=== PATIENT | female | born 1965 | race Caucasian/White ===

== ENCOUNTER 2018-11-04 05:20 | Inpatient (IN) | payer OTHER ==
[2018-11-04] MEDS ORDERED: ONDANSETRON HCL/PF 4 MG/ 2ML VIAL ONE (08:48)
[2018-11-04] MEDS ORDERED: BACITRACIN 50,000 UNIT VIAL IR ONE (08:48)
[2018-11-04] MEDS ORDERED: LEVALBUTEROL NEB 1.25 MG/3 ML VIAL.NEB NEB ONE (08:48)
[2018-11-04] MEDS ORDERED: SEVOFLURANE 250 ML LIQUID IH ONE (08:48)
[2018-11-04] MEDS ORDERED: DEXAMETHASONE SODIUM PHOSPHATE 10 MG/ML VIAL ONE (08:48)
[2018-11-04] MEDS ORDERED: HYDROmorphone HCL/PF 1 MG/ML VIAL ONE ×3 (08:48→10:42)
[2018-11-04] MEDS ORDERED: FAMOTIDINE 20 MG/2 ML VIAL IV ONE (08:48)
[2018-11-04] MEDS ORDERED: GELATIN SPONGE,ABSORB/PORCINE (SIZE 100) 1 EACH SPONGE TP ONE (08:48)
[2018-11-04] MEDS ORDERED: SUGAMMADEX SODIUM 200 MG/2 ML VIAL IV ONE (08:48)
[2018-11-04] MEDS ORDERED: LACTATED RINGERS 1,000 ML IV.SOLN IV ONE ×2 (08:48)
[2018-11-04] MEDS ORDERED: THROMBIN (BOVINE) 20,000 UNIT VIAL TP ONE (08:48)
[2018-11-04] MEDS ORDERED: fentaNYL CITRATE/PF 100 MCG/2 ML INJ. ONE ×3 (08:48→10:24)
[2018-11-04] MEDS ORDERED: PROPOFOL 200 MG/20 ML VIAL IV ONE (08:48)
[2018-11-04] MEDS ORDERED: ROCURONIUM BROMIDE 10 MG/ML 5ML VIAL ONE (08:48)
[2018-11-04] MEDS ORDERED: FENTANYL CITRATE/PF 250 MCG/5 ML INJ. ONE (08:48)
[2018-11-04] MEDS ORDERED: MIDAZOLAM HCL 2 MG/2 ML VIAL ONE (08:48)
[2018-11-04] MEDS ORDERED: ceFAZolin SODIUM 1 GM VIAL ONE (08:48)
[2018-11-04] MEDS ORDERED: LIDOCAINE HCL 2% PF 100MG/5ML VIAL IJ ONE (08:48)
[2018-11-04] MEDS ORDERED: ACETAMINOPHEN 500 MG TABLET PO PRN (11:12)
[2018-11-04] MEDS ORDERED: HYDROmorphone HCL 2 MG TABLET PO PRN (11:12)
[2018-11-04] MEDS ORDERED: diphenhydrAMINE HCL 50 MG/ML VIAL IVP PRN (11:12)
[2018-11-04] MEDS ORDERED: LEVALBUTEROL NEB 1.25 MG/3 ML VIAL.NEB NEB PRN (11:12)
[2018-11-04] MEDS ORDERED: ACETAMINOPHEN PO PRN (11:12)
[2018-11-04] MEDS ORDERED: oxyCODONE HCL 5 MG TABLET PO PRN (11:12)
[2018-11-04] MEDS ORDERED: DIAZEPAM 5 MG TABLET PO PRN (11:12)
[2018-11-04] MEDS ORDERED: PROMETHAZINE HCL 25 MG in 0.9 % SODIUM CHLORIDE 50 ML IV PRN (11:12)
[2018-11-04] MEDS ORDERED: diphenhydrAMINE HCL 25 MG TABLET PO PRN (11:12)
[2018-11-04] MEDS ORDERED: ONDANSETRON HCL/PF 4 MG/ 2ML VIAL IVP PRN (11:12)
[2018-11-04] MEDS ORDERED: OXYCODONE HCL PO PRN (11:12)
[2018-11-04 11:39] VITALS: BMI 28.9
--- NOTE | 2018-11-04 11:43 | History and Physical Report ---
History of Present Illnes - History of Present Illness Reason for Visit: S/P Lumbar Spine Total Disc Replacement L5-S1 Bilateral History of Present Illness: Patient is a 53-year-old white female that has an extensive history of back pain that has been unrelieved with multiple treatments. She currently is on narcotic pain medication and muscle relaxers. Her pain is increased with ambulation, sitting, standing, or trying to reposition in bed. She uses heating pads at home along with her pain medications. She uses a cane when she walks or a motorized scooter. She is mostly in her bed. Patient and surgeon decided to move forward with surgical procedure. Patient behavior is unusual- she was initially sleeping when leaving PACU (received sufficient amount of pain medication) and when she woke up she started screaming-crying (no tears)- and very uncooperative with staff. Explained that we were trying to help her- she laid supine in bed- looking to the left with her eyes closed yelling- (no guarding, grimacing, or moving to find position of comfort)- she stops yelling to answer questions, and finally allowed staff to get vitals when stated the importance for receiving pain medications (explained we wanted to make sure blood pressure/or heart rate was of no concern). We will try to find a point where patient is satisfied with level of discomfort without affecting resp. status or vital signs. 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: Migraine Gastrointestinal: GERD Hepatobiliary: Other (fatty liver) Psych: Anxiety, Bipolar, Depression, Other (PTSD) Musculoskeletal: Chronic low back pain, Osteoarthritis - Past Surgical History Past Surgical History: Other (discogram L2-L3, L3-4, L4-5, laminectomy L4-5 (2011)), Tubal Ligation, Tonsillectomy - Past Family History Mother Family History: Hypertension Father Family History: Other (Pancreatitis) - Past Social History Smoke: <1 pack per day Occupation: Disabled Alcohol: None Drugs: None Lives: With Family - Health Maintenance Health Maintenance: Influenza Vaccine Influenza Vaccine: Current for this Influenza Season Pneumonia Vaccine: No Resuscitation Status: Resusciation Status Resuscitation Status Full Code - Unable to Obtain History Unable to Obtain: No Review of Systems - Review of Systems Constitutional: negative: Fever, Chills Eyes: negative: pain ENT: negative: Ear Pain, Nose Pain, Throat Pain Respiratory: negative: Shortness of Breath, Wheezing Cardiovascular: negative: Chest Pain, Light Headedness Gastrointestinal: Abdominal Pain (incision). negative: Nausea, Vomiting Genitourinary: negative: Dysuria Musculoskeletal: Back Pain Skin: negative: Rash Neurological: negative: Weakness - Medications/Allergies Allergies/Adverse Reactions: Allergies Allergy/AdvReac Type Severity Reaction Status Date / Time erythromycin base Allergy Verified 11/04/18 11:09 quetiapine [From Seroquel] Allergy Verified 11/04/18 11:09 varenicline [From Chantix] Allergy Verified 11/04/18 11:09 Home Medications: Home Medications Aspirin [Aspir-Low] 81 mg PO DAILY 11/04/18 Atorvastatin Calcium 10 mg PO HS 11/04/18 Cyclobenzaprine HCl 10 mg PO TID PRN 11/04/18 Glucosamine HCl/Chondroitin Rosales [Endur-Flex Sr Tablet] 1 each PO DAILY 11/04/18 Melatonin 10 mg PO HS 11/04/18 Multivitamin [Multiple Vitamins] 1 each PO DAILY 11/04/18 Naproxen 500 mg PO BID 11/04/18 Center-3 Fatty Acids/Fish Oil [Fish Oil 1,000 mg Capsule] 1 cap PO DAILY 11/04/18 Omeprazole 20 mg PO DAILY 11/04/18 Oxybutynin Chloride [Ditropan] 5 mg PO TID 11/04/18 Oxycodone HCl [Roxicodone] 1 tab PO Q6 PRN 11/04/18 Sumatriptan Succinate 50 mg PO PRN PRN 11/04/18 Current Inpatient Medications: Current Inpatient Medications Acetaminophen (Tylenol Extra Strength) 500 mg PO Q4 PRN PRN Reason: for mild pain 1-4/fever Atorvastatin Calcium (Lipitor) 10 mg PO HS [facility] Diazepam (Valium) 5 mg PO Q8H PRN PRN Reason: Anxiety/muscle spasm Diphenhydramine HCl (Benadryl) 25 mg PO Q4 PRN PRN Reason: Itching or Sleeping Stop: 11/05/18 11:11 Diphenhydramine HCl (Benadryl) 25 mg IVP Q4 PRN PRN Reason: Itching or Sleeping Famotidine (Pepcid) 20 mg IVP BID [facility] Stop: 11/08/18 20:59 Heparin Sodium (Porcine) (Heparin) 5,000 unit SQ Q12 [facility] Hydromorphone HCl (Dilaudid) 4 mg PO Q4H PRN PRN Reason: FOR SEVERE PAIN 8-10 Stop: 11/05/18 11:11 Potassium Chloride/Dextrose/Sod Cl (D5w-1/2ns Kcl20) 1,000 mls @ 75 mls/hr IV Q12H [facility] Promethazine HCl 25 mg/ Sodium (Chloride) 51 mls @ 200 mls/hr IV Q6 PRN PRN Reason: Nausea / Vomiting Stop: 11/08/18 11:11 Ketorolac Tromethamine (Toradol) 15 mg IV Q6H PRN PRN Reason: For Mild Pain 1-4 Stop: 11/08/18 11:11 Levalbuterol HCl (Xopenex Neb) 1.25 mg NEB Q4H PRN PRN Reason: SOA, DYSPNEA, WHEEZING Miscellaneous (Melatonin [Melatonin]) 10 mg PO HS [facility] Morphine Sulfate () 4 mg IVP Q2 PRN PRN Reason: SEVERE PAIN 8-10 Stop: 11/05/18 11:11 Nicotine (Habitrol 14mg) 1 patch TD DAILY [facility] Ondansetron HCl (Zofran) 4 mg IVP Q6H PRN PRN Reason: Nausea / Vomiting Stop: 11/08/18 11:11 Oxybutynin Chloride (Ditropan) 5 mg PO TID [facility] Oxycodone HCl (Percolone) 10 mg PO Q4 PRN PRN Reason: Severe Pain (Score 5-7) Oxycodone/Acetaminophen (Percocet 7.5-325) 1 each PO Q4 PRN PRN Reason: FOR PAIN 1-4 Oxycodone/Acetaminophen (Percocet 7.5-325) 2 each PO Q4 PRN PRN Reason: FOR PAIN 5-7 Exam - Exam Vital Signs: Vital Signs (72 hours) 11/04/18 11/04/18 11:12 11:25 Temperature 97.3 F L Pulse Rate [ 102 H Pulse ox] Respiratory 24 Rate Blood Pressure 140/85 [Right Arm] O2 Sat by Pulse 94 94 Oximetry General: Alert, Oriented to Person, Oriented to Place, Moderate distress (Pt lying still- wont open eyes- screaming in pain- no tears) HEENT: PERRLA, Mouth Mucous membr. moist/[place], Nose Mucous membr. moist/[place], Other (left cheek- ingrown hair) Neck: Normal Range of Motion Carotids: No bruit- Patient yelling Lungs: Clear to auscultation, Normal air movement, Speaks full Sentences Cardiovascular: Regular rate, Normal S1, Normal S2 Abdomen: Soft, Decreased Bowel Sounds Integumentary: [place], Warm, Dry, Other (dressing to abdomen) Extremities: Normal pulses Neurological: Normal speech, Strength Equal Bilat, Sensation intact Psych/Mental Status: Other (behavior unusual- no guarding, grimacing, or trying to find position of comfort- no tears but crying and yelling) Assessment/Plan - Assessment/Plan (1) Status post lumbar surgery Status: Acute Current Visit: Yes Plan: Will give pain medication as directed, will monitor dressing site, will administer IVF to prevent dehydration d/t NPO status before surgery and until she can tolerate PO. Will give antiemetics as needed for nausea & vomiting, will give Pepcid IVP BID for GERD and d/t stress from surgery, will give heparin to prevent DVT along with SCDs while in bed. Patient will use incentive spirometry frequently to prevent resp. illness. Nicotine patch ordered due to smoking. (2) Anxiety and depression Status: Acute Current Visit: Yes Plan: Patient does not appear to be on medication- but will have staff monitor and offer items for distraction (3) GERD (gastroesophageal reflux disease) Status: Acute Current Visit: Yes Qualifiers: Esophagitis presence: esophagitis presence not specified Qualified Code(s): K21.9 - Gastro-esophageal reflux disease without esophagitis Plan: Will give Pepcid 20 mg IV BID (4) Chronic back pain Status: Acute Current Visit: Yes Qualifiers: Back pain location: low back pain Back pain laterality: bilateral Sciatica presence: with sciatica Sciatica laterality: sciatica laterality unspecified Qualified Code(s): M54.40 - Lumbago with sciatica, unspecified side; G89.29 - Other chronic pain Plan: Patient is s/p lumbar surgery VTE Assessment - RISK FACTOR SCORE VTE RISK FACTOR SCORES: AGE 40-60 YEARS, SMOKER, MAJOR SURGERY/ANESTHESIA TIME > 1 HOUR - RISK VTE HIGH RISK: SCORE OF 3-4 (RISK PROXIMAL DVT 4-8%) PROPHYLAXIS NEEDED (Heparin q12 hrs, SCDs while in bed)
[2018-11-04] MEDS ORDERED: KETOROLAC TROMETHAMINE 15 MG/ML VIAL ONE (12:05)
[2018-11-04] MEDS: POTASSIUM CHLOR 20 MEQ D51/2NS 1,000 ML IV SCH (12:11)
[2018-11-04] MEDS: NICOTINE 14mg PATCH.TD24 TD SCH (12:11)
[2018-11-04] MEDS: OXYBUTYNIN CHLORIDE 5 MG TABLET PO SCH ×2 (12:12→17:01)
[2018-11-04] MEDS ORDERED: KETOROLAC TROMETHAMINE 15 MG/ML VIAL IV PRN (12:15)
[2018-11-04] MEDS: MORPHINE SULFATE 4 MG/ML VIAL IVP PRN ×2 (13:12→17:02)
[2018-11-04] MEDS ORDERED: 0.9 % SODIUM CHLORIDE(MINIBAG+ 50 ML IV ONE (19:40)
[2018-11-04] MEDS: ACETAMINOPHEN PO PRN (20:13)
[2018-11-04] MEDS: OXYCODONE HCL PO PRN (20:13)
[2018-11-04] MEDS: FAMOTIDINE 20 MG/2 ML VIAL IVP SCH (20:56)
[2018-11-04] MEDS: MELATONIN 3 MG TABLET PO SCH (21:01)
[2018-11-04] MEDS ORDERED: ATORVASTATIN CALCIUM 20 MG TABLET PO ONE (21:06)
[2018-11-04] MEDS: HEPARIN SODIUM 5000 UNIT/1 ML SQ SCH (21:09)
[2018-11-04] MEDS: ATORVASTATIN CALCIUM 10 MG TABLET PO SCH (21:09)
[2018-11-05] MEDS: POTASSIUM CHLOR 20 MEQ D51/2NS 1,000 ML IV SCH ×2 (00:51→14:37)
[2018-11-05 06:47] LABS: BASOPHILS % 0.5 (0.0-1.5); EOSINOPHILS % 0.9 % (0.0-6.8); MONOCYTES % 8.7 % (0.0-11.0); NEUTROPHILS # 5.1 # k/uL (1.4-7.7); eGFR (Non-African) > 60
--- NOTE | 2018-11-05 06:54 | Inpatient Progress Note ---
Subjective - Required Recertification Statement I anticipate X number of days because-include discharge plan: 1 - Review of Systems Events since last encounter: Upon entry to room patient is lying supine in bed- she is alert and oriented- appears to be comfortable- no guarding or grimacing- neurovasculars are intact. She states that she has ambulated in the [place] a couple of times- she states that she has been using the incentive spirometer- and she is wearing the SCDs. Today, we will continue IVF until she is able to tolerate a regular diet- she will be transitioned from IV to PO pain medications, we will continue with Pepcid IV BID for GI upset s/p surgery, will continue to have patient work with therapy- dressing/incision site will be monitored, and heparin will be continued to prevent DVT General: Denies: Chills, Fatigue HEENT: Denies: Head Aches, Eye Pain, Sore Throat Pulmonary: Denies: Dyspnea, Cough Cardiovascular: Denies: Chest Pain, Light Headedness Gastrointestinal: Abdominal Pain (discomfort to incision site). Denies: Nausea, Vomiting Genitourinary: Denies: Dysuria Musculoskeletal: Back Pain (chronic). Denies: Leg Pain, Foot Pain Neurological: Denies: Weakness, Incoordination Objective - Exam Vitals and I&O: Vital Signs Temp 97.9 F 11/05/18 06:00 Pulse 83 11/05/18 06:00 Resp 16 11/05/18 06:00 BP 104/50 11/05/18 06:00 Pulse Ox 98 11/05/18 06:00 Intake & Output 11/04/18 11/04/18 11/05/18 11:59 23:59 11:59 Intake Total 0 490 300 Output Total 0 400 900 Balance 0 90 -600 Weight 88.904 kg Intake: Oral 0 490 300 Output: Urine 0 400 900 Other: Voiding Method Toilet Toilet # Voids 1 # Bowel Movements 0 General: Alert, Oriented to Person, Oriented to Place, Oriented to Time, Cooperative, No acute distress HEENT: PERRLA, Mouth Mucous membr. moist/[place], Nose Mucous membr. moist/[place] Neck: Supple, +2 carotid pulse wo bruit Lungs: Clear to auscultation, Normal air movement, Speaks full Sentences Cardiovascular: Regular rate, Normal S1, Normal S2 Abdomen: Normal bowel sounds, Soft, No tenderness Extremities: No edema, Normal pulses, No tenderness/swelling Skin: Normal, [place], Warm, Dry, Other (Dressing to abdomen dry/intact) Neurological: Normal gait, Normal speech, Strength Equal Bilat, Sensation intact Psych/Mental Status: Mental status NL, Appropriate Affect - Results Results: Laboratory Results WBC 8.40 K/ul (4.00-12.00) 11/05/18 06:05 RBC 4.05 M/ul (3.90-5.20) 11/05/18 06:05 Hgb 12.2 g/dL (12.0-16.0) 11/05/18 06:05 Hct 36.9 % (34.5-46.5) 11/05/18 06:05 MCV 91.0 fl (80.0-100.0) 11/05/18 06:05 MCH 30.0 pg (28.0-34.0) 11/05/18 06:05 MCHC 33.0 g/dL (30.0-36.0) 11/05/18 06:05 RDW 14.1 % (11.3-14.3) 11/05/18 06:05 Plt Count 230 K/mm3 (130-400) 11/05/18 06:05 Neut % (Auto) 59.8 % (39.0-79.0) 11/05/18 06:05 Lymph % (Auto) 30.1 % (16.0-50.0) 11/05/18 06:05 [place] % (Auto) 8.7 % (0.0-11.0) 11/05/18 06:05 Eos % (Auto) 0.9 % (0.0-6.8) 11/05/18 06:05 Baso % (Auto) 0.5 (0.0-1.5) 11/05/18 06:05 Neut # (Auto) 5.1 # k/uL (1.4-7.7) 11/05/18 06:05 Lymph # (Auto) 2.5 # k/uL (0.6-4.0) 11/05/18 06:05 [place] # (Auto) 0.7 # k/uL (0.0-0.9) 11/05/18 06:05 Eos # (Auto) 0.1 # k/uL (0.0-0.6) 11/05/18 06:05 Baso # (Auto) 0.0 # k/uL (0.0-0.5) 11/05/18 06:05 Sodium 134 mmol/L (136-145) L 11/05/18 06:05 Potassium 4.4 mmol/L (3.5-5.1) 11/05/18 06:05 Chloride 102 mmol/L (98-107) 11/05/18 06:05 Carbon Dioxide 27 mmol/L (22-30) 11/05/18 06:05 BUN 16 mg/dL (7-17) 11/05/18 06:05 Creatinine 0.83 mg/dL (0.52-1.04) 11/05/18 06:05 Estimated Creat Clear 126 11/05/18 06:05 Est GFR ( Amer) > 60 (60-) 11/05/18 06:05 Est GFR (Non-Af Amer) > 60 (60-) 11/05/18 06:05 Glucose 105 mg/dL (74-106) 11/05/18 06:05 Calcium 9.2 mg/dL (8.4-10.2) 11/05/18 06:05 Assessment/Plan - Assessment/Plan (1) Status post lumbar surgery Status: Acute Current Visit: Yes Assessment: LCTA, Dressing site is dry and intact, no pain to extremities x 4- neurovasculars are intact Plan: Will continue with pain control as directed- will transition from IV to Oral, will monitor dressing site, will administer IVF to prevent dehydration d/t NPO status before surgery and until she can tolerate PO. Will give antiemetics as needed for nausea & vomiting, will give Pepcid IVP BID for GERD and d/t stress from surgery, will give heparin to prevent DVT along with SCDs while in bed. Patient will use incentive spirometry frequently to prevent resp. illness. (2) Anxiety and depression Status: Acute Current Visit: Yes Assessment: Stable Plan: Will continue to monitor, offer activities for distraction (3) GERD (gastroesophageal reflux disease) Status: Acute Current Visit: Yes Qualifiers: Esophagitis presence: esophagitis presence not specified Qualified Code(s): K21.9 - Gastro-esophageal reflux disease without esophagitis Assessment: Tolerating PO liquids Plan: Will continue with Pepcid IV BID (4) Chronic back pain Status: Acute Current Visit: Yes Qualifiers: Back pain location: low back pain Back pain laterality: bilateral Sciatica presence: with sciatica Sciatica laterality: sciatica laterality unspecified Qualified Code(s): M54.40 - Lumbago with sciatica, unspecified side; G89.29 - Other chronic pain Assessment: S/P back surgery Plan: Will monitor pain
[2018-11-05] MEDS: OXYCODONE HCL PO PRN ×3 (08:51→20:15)
[2018-11-05] MEDS: ACETAMINOPHEN PO PRN ×3 (08:51→20:15)
[2018-11-05] MEDS: NICOTINE 14mg PATCH.TD24 TD SCH (09:11)
[2018-11-05] MEDS: OXYBUTYNIN CHLORIDE 5 MG TABLET PO SCH ×3 (09:11→17:50)
[2018-11-05] MEDS: HEPARIN SODIUM 5000 UNIT/1 ML SQ SCH ×2 (09:12→20:06)
[2018-11-05] MEDS: FAMOTIDINE 20 MG/2 ML VIAL IVP SCH ×2 (09:39→20:06)
--- NOTE | 2018-11-05 15:24 | Operative Note ---
PREOPERATIVE DIAGNOSIS: 1. Herniated nucleus pulposus, L5-S1. 2. Severe degenerative disc disease, L5-S1. POSTOPERATIVE DIAGNOSIS: 1. Herniated nucleus pulposus, L5-S1. 2. Severe degenerative disc disease, L5-S1. PROCEDURES PERFORMED: 1. Left side retroperitoneal exploration for exposure of the anterior intervertebral disc space at L5-S1. 2. Isolation, ligation, and division of the anterior sacral artery and vein for exposure of the anterior disc space at L5-S1. 3. Venolysis of the left and right common iliac veins for exposure of the anterior lumbar spine at L5-S1. 4. Arteriolysis of the left and right common iliac arteries for exposure of the anterior lumbar spine at L5-S1. 5. Radical anterior discectomy for herniated nucleus pulposus, L5-S1, with release of the posterior longitudinal ligament from the L5 vertebral body. 6. Placement of lumbar total disc replacement arthroplasty, large implant, 8.5 mm insert at L5-S1. 7. Intraoperative fluoroscopy and interpretation for needle placement. SURGEON: Fred Dunham Jr. MMarley. CRYPTOLOGIC LINGUIST: None. ANESTHESIA: General. COMPLICATIONS: None. CONDITION FOLLOWING THE PROCEDURE: Good. OPERATIVE FINDINGS: Ms. Castro has exquisite pain unresponsive to prolonged conservative management at L5-S1. The patient was counseled regarding options and in lieu of fusion would like to preserve motion with a total disc replacement arthroplasty. This was carried out today with the appearance of ideal placement by intraoperative C-arm fluoroscopic views. DESCRIPTION OF PROCEDURE: The patient was taken to the operating room and anesthesia induced. In the supine position, the abdomen was thoroughly scrubbed and sterilely prepped and draped. A skin manju was made representing the extended center line of the L5-S1 disc space as determined radiographically. In this location, a 3.5-cm vertical incision was made in the skin and electrocautery was used to make subcutaneous dissection down to the anterior rectus sheath. Just to the left of midline, the anterior rectus sheath was divided vertically and the left rectus muscle was from the midline and elevated in its entirety anteriorly. The retroperitoneal space was then entered and the inferolateral margin of the posterior rectus sheath and the peritoneal contents were swept superiorly and to the right side, including the left ureter. The L5-S1 palpable step-off was noted, followed by arteriolysis and venolysis of the left and right common iliac artery and vein, respectively, with placement of Omni Blade Self-retaining retractors to hold them widely , exposing the entirety of the L5-S1 disc space anteriorly. The middle sacral artery and vein were then isolated, clipped with titanium clips and divided to allow access. Electrocautery was then used to perform an annulotomy from the left to the right side completely of the intervertebral disc space. A combination of pituitary rongeurs, curettes, and Kerrison rongeurs were then used to effect a complete radical discectomy all the way back to and including portions of the posterior longitudinal ligament. Gradual distraction was carried out and eventually the posterior longitudinal ligament was torn away from the vertebral body to allow sufficient distraction of the intervertebral disc space. Any remnants of a previous or current herniation would be removed as well and any projecting osteophytes causing foraminal stenosis would also be addressed with Kerrison rongeur or curettes. A trial device was inserted and it was determined an extra-wide implant would be satisfactory with a certain measured plastic insert used. Thus the total disc replacement arthroplasty was prepared and assembled on the insertion tool and the trial implant was removed. Holding the disc space open with a curette, the total disc replacement arthroplasty was inserted and driven to its final position while checking radiographically that it was well centered. Further adjustments were made to place the implant in the desired location as the otr flatbed company truck driver was removed. Gelfoam was placed over the anterior disc space and the retractors were gradually removed while checking for persistence of hemostasis. The posterior rectus sheath was then swept digitally back to its normal position. The anterior rectus sheath was sewn tightly shut with 0 PDS, 3-0 Vicryl approximated the subcutaneous tissue, and stainless steel jamie approximated the skin. A sterile bulky dressing was applied and the patient was taken to the recovery room in good condition. FRED DUNHAM JR., M.D. TYRONE/addison Job #[id number] @ 0936 @ 1438 FERCHO
[2018-11-05] MEDS: MELATONIN 3 MG TABLET PO SCH (20:05)
[2018-11-05] MEDS: ATORVASTATIN CALCIUM 10 MG TABLET PO SCH (20:05)
[2018-11-06] MEDS: ACETAMINOPHEN PO PRN ×3 (01:29→10:27)
[2018-11-06] MEDS: OXYCODONE HCL PO PRN ×3 (01:29→10:27)
[2018-11-06] MEDS: POTASSIUM CHLOR 20 MEQ D51/2NS 1,000 ML IV SCH (03:00)
--- NOTE | 2018-11-06 05:55 | Discharge Summary ---
Discharge Summary - Discharge Sumary History of Present Illness: Patient is a 53-year-old white female that has an extensive history of back pain that has been unrelieved with multiple treatments. She currently is on narcotic pain medication and muscle relaxers. Her pain is increased with ambulation, sitting, standing, or trying to reposition in bed. She uses heating pads at home along with her pain medications. She uses a cane when she walks or a motorized scooter. She is mostly in her bed. Patient and surgeon decided to move forward with surgical procedure. Patient behavior is unusual- she was initially sleeping when leaving PACU (received sufficient amount of pain medication) and when she woke up she started screaming-crying (no tears)- and very uncooperative with staff. Explained that we were trying to help her- she laid supine in bed- looking to the left with her eyes closed yelling- (no guarding, grimacing, or moving to find position of comfort)- she stops yelling to answer questions, and finally allowed staff to get vitals when stated the importance for receiving pain medications (explained we wanted to make sure blood pressure/or heart rate was of no concern). We will try to find a point where patient is satisfied with level of discomfort without affecting resp. status or vital signs. Condition at Discharge: Stable Home Medications: Ambulatory Orders Medication Instructions Recorded Aspirin [Aspir-Low] 81 mg PO DAILY 11/04/18 Glucosamine HCl/Chondroitin Rosales 1 each PO DAILY 11/04/18 [Endur-Flex Sr Tablet] Multivitamin [Multiple Vitamins] 1 each PO DAILY 11/04/18 [place]-3 Fatty Acids/Fish Oil [Fish 1 cap PO DAILY 11/04/18 Oil 1,000 mg Capsule] Oxybutynin Chloride [Ditropan] 5 mg PO TID 11/04/18 RX: Atorvastatin Calcium 10 mg PO HS 11/04/18 RX: Cyclobenzaprine HCl 10 mg PO TID PRN 11/04/18 RX: Melatonin 10 mg PO HS 11/04/18 RX: Naproxen 500 mg PO BID 11/04/18 RX: Omeprazole 20 mg PO DAILY 11/04/18 RX: Oxycodone HCl [Roxicodone] 1 tab PO Q6 PRN 11/04/18 RX: Sumatriptan Succinate 50 mg PO PRN PRN 11/04/18 Consultations this Visit: None Procedures this Visit: Other (S/P Lumbar Surgery) Allergies/Adverse Reactions: Allergies Allergy/AdvReac Type Severity Reaction Status Date / Time erythromycin base Allergy Verified 11/04/18 11:09 quetiapine [From Seroquel] Allergy Verified 11/04/18 11:09 varenicline [From Chantix] Allergy Verified 11/04/18 11:09 Patient Problems: Current Active Problems Problem Status Onset Anxiety and depression Acute Chronic back pain Acute GERD (gastroesophageal reflux disease) Acute Status post lumbar surgery Acute Discharge Summary: Patient is a 53-year-old female that has done very well s/p surgery once pain was under control. She has been cooperative with her care and treatment- She has been up walking- denies any shortness of breath, difficulty swallowing, or chest pain. She is still having discomfort but pain has greatly improved- no nausea or vomiting. Neurovasculars intact x 4 extremities. Abdominal dressing was dry and intact. Hospital Course: Labs, Pain medication, Incentive spirometry, SCDs while in bed, heparin, ambulation - Final Diagnosis (1) Status post lumbar surgery Problems: Pain is under control, neurovasculars are intact x 4 extremities, dressing is dry and intact, no abdominal pain- no nausea or vomiting Right or Left: Right (2) Anxiety and depression Problems: stable on home meds Right or Left: Right (3) GERD (gastroesophageal reflux disease) Problems: Stable on home meds Right or Left: Right (4) Chronic back pain Problems: S/P lumbar surgery Right or Left: Right
[2018-11-06] MEDS: OXYBUTYNIN CHLORIDE 5 MG TABLET PO SCH (08:24)
[2018-11-06] MEDS: NICOTINE 14mg PATCH.TD24 TD SCH (08:24)
[2018-11-06] MEDS: HEPARIN SODIUM 5000 UNIT/1 ML SQ SCH (08:24)
[2018-11-06] MEDS: FAMOTIDINE 20 MG/2 ML VIAL IVP SCH (08:43)
[2018-11-06] MEDS ORDERED: RED CRASH CART TAGS 1 EACH MC ONE (11:40)
[2018-11-06 14:06] VITALS: BP 126/80
== END 2018-11-06 12:30 | disposition home or self-care (01) | DRG 518 ==
LOC: OPSURG 05:20 → SOUTH 10:59
PROVIDERS: ADMIT Nurse Practitioner Family; ATTEND Nurse Practitioner Family
PROC: 0SR40JZ Replacement of Lumbosacral Disc with Synthetic Substitute, Open Approach (ICD-10-PCS; principal; 2018-11-04)
DX: M51.27 Other intervertebral disc displacement, lumbosacral region (principal); M51.37 Other intervertebral disc degeneration, lumbosacral region; I10 Essential (primary) hypertension; F43.10 Post-traumatic stress disorder, unspecified; F17.210 Nicotine dependence, cigarettes, uncomplicated
CPT/HCPCS: 22857; 36415; 80048; 85025; 86885; 86900; 86920; 97116; 97161; 97165; 97530; 97535; J0690; J1170; J1644; J2001; J2250; J2270; J2405; J2704; J3010; J3490; J7070; J7120; J7614; 99231; 99232; 99238; P9040